=== PATIENT | female | born 1965 | race Two or more races ===

== ENCOUNTER 2016-11-29 09:50 | Day surgery (SDC) | payer OTHER ==
[~2016-11-29] VITALS: Ht 172.7 cm; Wt 79.4 kg
[~2016-11-29 09:50] MED LIST: CETI5TAB28 PO; CHOL200047 PO; EPIN0.3P2 IJ; HYDR25TA4 PO; MELO7.5O PO; MONT10TA20 PO; MULT-1018 PO; OMEP20TA86 PO
[2016-11-29] MEDS ORDERED: fentaNYL-PF 50 mCg/mL 2 mL Inj ONE (09:51)
[2016-11-29] MEDS ORDERED: Propofol 10,000 mCg/mL 20 mL Inj ONE (09:51)
[2016-11-29 10:05] VITALS: BP 135/85; PULSE 77; RESP 16; O2SAT 97
[2016-11-29] MEDS: Lactated Ringer's 1,000 ML IV ONE ×2 (10:27→10:40)
[2016-11-29 10:50] VITALS: BP 122/69; PULSE 68; RESP 16; O2SAT 95
--- NOTE | 2016-11-29 10:58 | PCM.ANEP2 ---
Post Anesthesia Evaluation ASA/CMS Post Anesthesia VS in Patient's Normal Range?: Yes Resp Stable; Airway Patent?: Yes CV Function & Hydration Stable: Yes Mental Status Recovered?: Yes Pain control Satisfactory?: Yes N/V Control Satisfactory?: Yes Bubba Henriquez MD Nov 29, 2016 10:58
--- NOTE | 2016-11-29 10:58 | PCM.HPANE ---
Patient Data Surgeon Admitting Provider: Attending Provider:Vic Ta MD Primary Care Physician:Michelle Oates MD Other Provider:Josse Arana Anesthesia Reason for Visit Screeening, Dysphagia Ht/WT & BMI Body Mass Index Allergies Coded Allergies: cobalt (Verified Allergy, Intermediate, hives, 08/02/15) latex (Verified Adverse Reaction, Intermediate, hives, 08/02/15) Past Anesthesia History Anesthesia History: Denies:: Abnormal Airway, Anesthesia Reactions, Difficult Intubation, Fam Anesthesia Reaction, Fam Malignant Hypertherm, Malignant Hyperthermia Diabetes History Hx Diabetes?: No MRSA MRSA: No Medications Reported Medications Meloxicam 7.5 Mg/5 Ml Oral.susp15 Mg PO DAILY 30 Days 11/28/16 Multivitamin (Multi Vitamin Daily)1 Each Tablet1 Each PO DAILY 30 Days Ref 0 12/23/15 Cetirizine 5 Mg [id number] Mg PO HS PRN allergy sx Ref 0 12/22/15 Epinephrine (Epipen 2-Koffi)0.3 Mg/0.3 Ml Auto.injct0.3 Mg IJ PRN For Anaphyllaxis 12/22/15 Hydrochlorothiazide 25 Mg Lkgujz68 Mg PO DAILY 30 Days Ref 0 12/22/15 Omeprazole 20 Mg Tablet.dr20 Mg PO DAILY 12/22/15 Cholecalciferol (Vitamin D3) (Vitamin D3)2,000 Unit Capsule2,000 Unit PO DAILY 12/22/15 Montelukast (Singulair)10 Mg Pahtga82 Mg PO HS Ref 0 12/22/15 History History of ENT Problems?: Yes HEENT History: Positive for:: Dysphagia Sinus Problem (chronic nasal congestion) Denies:: Abnormal Airway Cataracts Difficult Intubation Hearing Problem Hx of Heart Problems?: No Cardiovascular History: Denies:: AICD Abdominal Aortic Aneurism Atrial Fibrillation Cardiac Surgery Chest Pain Congestive Heart Failure Edema Heart Murmur Hypertension Irregular Heartbeat Pacemaker Rheumatic Fever Thrombophlebitis Valvular Heart Disease Hx of Respiratory Problem?: Yes Respiratory History: Positive for:: Use of C-PAP Machine (uses inconsistently ) Denies:: Asthma COPD Cough Emphysema Hemoptysis Oxygen Administration Pneumonia Tuberculosis Hx Neurologic Problems?: No Neurological History: Denies:: CVA Dementia Dizziness Headaches Multiple Sclerosis Parkinson's Disease Seizures Hx of GI Problems?: Yes Gastrointestinal History: Positive for:: Gastroesphageal Reflux (OCC) Heartburn Denies:: Cirrhosis Diverticulitis Hiatal Hernia Rectal Bleeding Hx of Problems?: Yes Genitourinary History: Positive for:: Kidney Stones Denies:: Urinary Tract Infection (hx of not current) Female Hx: Denies:: Currently (POST MENOPAUSAL) Problems with Breasts? Skin History: Denies:: History Skin Disorders? Pressure Ulcers Hx Musculoskeletal Problems?: Yes Musculoskeletal History: Positive for:: Musculoskeletal Trauma (right foot plantar fascititis current admission problem) Denies:: Joint Replacement Hx of Psycho/Social Problems?: No Psycho Social History: Denies:: Anxiety Hx Depression Hx Surgeries?: Yes (FOOT SX, GALLBLADDER, FINGER ) Hx Any Other Health Problems?: Yes Other History: Denies:: Cancer Thyroid Disease History Blood Transfusions: Denies:: Blood Transfusions Hx Diabetes: No Hx Alcohol Use: NoHx Substance Use: No Smoking Status: Never Smoker Have You Smoked inLast 12 mo: No Stop/Bang Risk Assessment Category Category 1A: Patient has history of documented sleep apnea, and HAS NOT received any narcotic, sedative or anesthesia administration during this stay. Category 1B: Patient has history of documented sleep apnea, and HAS received any narcotic , sedative or anesthesia administration during this stay Category 2: Patient has SUSPECTED Obstructive Sleep Apnea, and HAS received any narcotic , sedative or anesthesia administration during this stay. Category 3: Patient has SUSPECTED Obstructive Sleep Apnea and HAS NOT received narcotic, sedative or anesthesia administration during this stay. Category 4: Outpatient in Procedural Areas with known sleep apnea or who screen positive for High Risk via the STOP/BANG questionnaire. Exam Exam General Appearance: Alert, Oriented X3, Cooperative, No Acute Distress HEENT/AIRWAY: MP 2 Lungs: Clear to Auscultation, Normal Air Movement Heart: Exam Unremarkable, Regular Rate/Rhythm, No Murmurs/Rubs/Gallops Plan Impression Patient chart reviewed, patient interviewed and anesthestic plan with risks, benefits, and alternatives discussed, and informed consent obtained. NPO Status: 2330 ASA Physical Status: ASA2 Mod Systemic Disease Anesthetic Plan: GA Bene/Risks/Altern/Consents: Yes HP Complete Prior to Induction: Yes Bubba Henriquez MD Nov 29, 2016 09:03
[2016-11-29 11:00] VITALS: BP 114/76; PULSE 75; RESP 16; O2SAT 92
[2016-11-29 11:09] VITALS: BP 119/76; PULSE 70; RESP 16; O2SAT 94
--- NOTE | 2016-11-30 00:21 | ENDO ---
[address] [address] ENDOSCOPY PROCEDURE PATIENT: REMA GRAYSON : 1965 MR#: [id number] ADMIT: 11/29/2016 JOB ID: [id number] DATE OF PROCEDURE: 11/29/2016 PROCEDURE: Esophagogastroduodenoscopy, biopsy with esophageal dilatation, colonoscopy. PREOPERATIVE DIAGNOSIS(ES): 1. Dysphagia. 2. Colorectal cancer screening. POSTOPERATIVE DIAGNOSIS(ES): 1. Mild bile reflux. 2. Status post CRE TTS serial balloon dilatation performed from 18 to 20 mm mucosal tear. 3. Normal colonoscopy. ANESTHESIA: Monitored anesthesia care. COMPLICATIONS: None. BLOOD LOSS: Minimal. DESCRIPTION OF PROCEDURE: After risks and benefits have been explained to the patient, informed consent was obtained. After anesthesia administered, upper endoscope was then inserted into the mouth, intubating into the esophagus, stomach, second portion of duodenum. Mucosa carefully examined. After the procedure was done, the scope withdrawn and the procedure terminated. Colonoscope was inserted per rectum to cecum. Mucosa carefully examined. Prep of the patient was excellent. After the procedure was done, the scope was withdrawn and procedure terminated. FINDINGS: Upon inspection of the esophagus, the esophagus was normal without masses, ulcers or lesions. Z-line located 40 cm from incisors. Upon entering the stomach, there was mild bile reflux seen. No masses, ulcers or lesions seen on retroflexion. Normal duodenal bulb, first and second portion. antrum, body of stomach, mid and distal esophagus to rule out eosinophilia or esophagitis. Afterwards, a CRE TTS balloon dilatation was performed in serial fashion up to 20 mm with mucosal tear. Upon inspection of the anus, no masses, lesions, hemorrhoids, or ulcers were seen. Throughout the entire examination no polyps, masses or lesions. Retroflexion was normal. IMPRESSION: 1. Normal colonoscopy. 2. Mild bile reflux. 3. Successful TTS serial balloon dilatation distal esophagus mucosal tear. RECOMMENDATIONS: Await pathology results. Repeat colonoscopy in 10 years for colorectal cancer screening.
--- NOTE | 2016-11-30 11:04 | PATH ---
SURGICAL PATHOLOGY Attending Physician:Vic Ta MD CASE STATUS: Signed Out PATIENT NAME: REMA GRAYSON PID: [id number] : 1965 DATE COLLECTED:11/29/2016 17:24 SPECIMEN: 1: Stomach, Antrum, Biopsy 2: Gastric, Biopsy 3: Esophagus, Biopsy 4: Esophagus, Biopsy CLINICAL HISTORY: 1). ANTRUM BIOPSY 2). GASTRIC BODY BIOPSY 3). DISTAL ESOPHAGUS BIOPSY 4). MID ESOPHAGEAL BIOPSY FINAL DIAGNOSIS: 1. Antrum Biopsy: Mild chronic gastritis involving antral mucosa. Negative for evidence of Helicobacter. Negative for intestinal metaplasia. Negative for dysplasia and malignancy. 2. Gastric Body Biopsy: Mild chronic gastritis involving fundic mucosa. Negative for evidence of Helicobacter. Negative for intestinal metaplasia. Negative for dysplasia and malignancy. 3. Distal Esophagus Biopsy: Fragments of squamous mucosa and gastric cardia-type mucosa negative for specialized metaplasia of Liu's-type esophagus. Negative for dysplasia and malignancy. Eosinophils are not increased. 4. Mid-Esophageal Biopsy: Fragments of squamous epithelium, negative for significant atypia. Eosinophils are not increased. ICD10 K29.70 GROSS DESCRIPTION: The specimen is received in four formalin filled containers labeled with the patient's name. 1). The specimen is sublabeled "antrum" and consists of a 0.5 x 0.3 x 0.2 CM portion of tissue which is entirely submitted in cassette 1A. 2). The specimen is sublabeled gastric body" and consists of 2 portions of tissue which aggregate to 0.3 x 0.3 x 0.2 CM. The specimen is entirely submitted in cassette 2A. 3). The specimen is sublabeled "distal esophagus" and consists of 2 portions of tissue which aggregate to 0.3 x 0.3 x 0.2 CM. The specimen is entirely submitted in cassette 3A. 4). The specimen is sublabeled "mid esophagus" and consists of 2 portions of tissue which aggregate to 0.1 x 0.1 x 0.1 CM. The specimen is entirely submitted in cassette 4A. 11/29/2016 [facility] ICD-9 CODES: CPT CODES: 1: 87514 2: 60901 3: 19681 4: 10996 Electronically Signed Out Moises Law MD [facility] [address], [place] [address] Technical component performed at [facility], [address], [place], [address]
== END 2016-11-29 23:59 | disposition home or self-care (01) ==
LOC: END 09:50
PROVIDERS: ATTEND Internal Medicine Gastroenterology
DX: Z12.11 Encounter for screening for malignant neoplasm of colon (principal); K29.50 Unspecified chronic gastritis without bleeding; K21.9 Gastro-esophageal reflux disease without esophagitis; K44.9 Diaphragmatic hernia without obstruction or gangrene; R13.10 Dysphagia, unspecified; I10 Essential (primary) hypertension; G47.33 Obstructive sleep apnea (adult) (pediatric); R73.03 Prediabetes; Z87.442 Personal history of urinary calculi

== ENCOUNTER 2017-03-24 18:00 | Emergency (ER) | payer OTHER ==
[~2017-03-24] VITALS: Ht 174 cm; Wt 79.5 kg
[2017-03-24 18:02] VITALS: BP 147/90; PULSE 86; RESP 16; O2SAT 98
--- NOTE | 2017-03-24 19:03 | ED.REPORT ---
HPI-Extremity Problem Upper Date of Service Mar 24, 2017 ED Provider: Dr. Merritt Pt is a generally healthy 51 y/o female presenting to the ED c/o left finger discoloration s/p recent surgery. The patient had a recent surgery for non- infectious tenosynovitis of her left hand 4 days ago at [facility] and today began to notice discoloration of her left fingers. Her appointment with the surgeon is on 04/02. She c/o associated left forearm and hand pain. She denies numbness/tingling/weakness of the left hand or fingers, fever, chills. Nursing Notes Stated Complaint: HAND TURNING BLACK Chief Complaint: Extremity Trauma Nursing Notes Reviewed: Yes Allergies: Coded Allergies: cobalt (Verified Allergy, Intermediate, hives, 03/24/17) latex (Verified Adverse Reaction, Intermediate, hives, 03/24/17) Scheduled Cholecalciferol (Vitamin D3) (Vitamin D3) 2,000 Unit Capsule 2,000 UNIT PO DAILY Hydrochlorothiazide (Hydrochlorothiazide) 25 Mg Tablet 25 MG PO DAILY Meloxicam (Meloxicam) 7.5 Mg/5 Ml Oral.susp 15 MG PO DAILY Montelukast (Singulair) 10 Mg Tablet 10 MG PO HS Multivitamin (Multi Vitamin Daily) 1 Each Tablet 1 EACH PO DAILY Omeprazole (Omeprazole) 20 Mg Tablet.dr 20 MG PO DAILY Scheduled PRN Cetirizine (Cetirizine) 5 Mg Tablet 10 MG PO HS PRN PRN allergy sx Epinephrine (Epipen 2-Koffi) 0.3 Mg/0.3 Ml Auto.injct 0.3 MG IJ PRN For Anaphyllaxis General Time Seen by MD: 19:02 Chief Complaint Other (finger discoloration) Hx Obtained From: Patient Arrived By: Walk-in Onset Occurred: 5 - 8 hours ago Symptom Duration: Since onset Location: : Forearm left: Hand left Quality: Painful Severity: Current: Moderate Severity: Maximum: Moderate Recent Healthcare: Previous surgery Similar Sx Previous: No Past Medical History Past Medical History GERD Hx kidney stones Hx of UTI Hx of right foot plantar fasciitis Past Surgical History Foot Cholecystectomy Left hand Smoking History Never Smoker Social History Alcohol Use: Denies alcohol use Drug Use: Denies drug use Ambulatory Status Independent Review of Systems Review of Systems Note: +discoloration Constitutional: Denies: Chills, Fever Musculoskeletal: Reports: Extremity pain, Extremity swelling Neurologic: Denies: Numbness, Weakness Complete sys rev & neg: except as marked. Physical Exam Initial Vital Signs Vital Signs (First) Date Time Temp Pulse Resp B/P Pulse Ox O2 Delivery O2 Flow Rate FiO2 03/24/17 18:02 36.9 86 16 147/90 98 Room Air Initial VS: Reviewed, Vital signs normal Head / Eyes: Atraumatic, Normocephalic, PERRL ENT: Mucous membranes moist, Conjunctiva normal, No scleral icterus Neck: Supple, Full range of motion Respiratory: Breath sounds normal, Clear to auscultation, No respiratory distress Cardiovascular: Regular rate & rhythm, Heart sounds normal, Intact distal pulses Abdomen / GI: Soft Lower Extremities: Vascular intact, Neuro intact Skin: Warm, Dry, No cyanosis Neurologic: Alert, Oriented, Nonfocal Psychiatric: Mood/affect normal, Behavior normal, Normal thought content General/Constitutional: Awake, Alert, No acute distress, Well appearing, Cooperative, Not toxic appearing Wrist / Hand: Full range of motion, No erythema, No deformity, Neurologic intact, Vascular intact 3 cm laceration with sutures in place over left dorsal wrist Interpretation & Diagnostics Interpretation & Diagnostics: LUE US: No DVT Interpreted by US tech, radiologist read pending. Re-Eval/Medical Decision Med Decision/Clinical Course 51-year-old female who is 4 days status post left wrist surgery for chronic tenosynovitis presenting with left hand swelling. She denies any pain, fevers, nausea vomiting. Her left hand and forearm is very mildly swollen. There is no evidence of infection. He is neurovascularly intact. The incision site is clean and dry with no evidence of infection. It is well healing. Left upper extremity ultrasound no evidence of DVT. Suspect this is normal postop changes. She was re-wrapped and advised to follow-up with primary doctor. Return precautions given if any sign symptoms of infection including fevers, nausea vomiting, redness, swelling, discharge, weakness numbness tingling, any other new or worsening symptoms. Source of Hx: Old records Re-Evaluation/Progress : Time of Eval: 21:58 Re-Evaluation/Progress Note: Pt rechecked. Discussed US results. Informed pt of plan for discharge. Pt understands and agrees with plan for discharge. F/U instructions and RTER warnings given. All questions addressed. Counseled Regarding: Diagnosis, Need for follow-up, When/why to return to ED Discharge & Departure Impression: Primary Impression: Postoperative ecchymosis Additional Impression: Postoperative edema Disposition: Home Discharge Condition All VS Reviewed: Yes Condition: Stable Additional Instructions: There is no sign of blood clot in your arm. These symptoms you are experiencing are typical in the postoperative setting. Your exam is reassuring. Return to the emergency department if you experience uncontrolled pain, significant numbness of your fingers, fevers, or for other concerning symptoms. Follow-up with your surgeon as scheduled. Referrals: Carlo Brooks DO (PCP) Scribe Attestation Portions of this note were transcribed by Nasim Quesada. I, Dr. Merritt personally performed the history, physical exam and medical decision-making; I reviewed and confirmed the accuracy of the information in the transcribed note. copies to: Carlo Brooks Ben M MD Mar 24, 2017 19:03 NASIM QUESADA Mar 24, 2017 19:26
[2017-03-24 21:36] VITALS: BP 127/77; PULSE 63; RESP 18; O2SAT 94
[2017-03-24 22:16] VITALS: BP 127/77; PULSE 63; RESP 18; O2SAT 94
--- NOTE | 2017-03-25 09:21 | DRSVH ---
PROCEDURE: US VENOUS ARM DUPLEX UNILATERAL, LEFT INDICATIONS: LUE swelling s/p surgery r/o DVT TECHNIQUE: Real-time imaging, as well as color and pulse Doppler interrogation, was performed of the left upper extremity deep veins from the inferior neck to the antecubital fossa. COMPARISON: None. FINDINGS: The internal jugular vein, visualized portions of the subclavian vein, axillary, and brach ial veins are free of intraluminal thrombus. Where physically possible, the veins are normally compr essible. Color and pulse Doppler demonstrate normal intraluminal flow, with expected phasicity and p ulsatility. Additional scanning of the cephalic and basilic veins of the superficial system demonstr ate normal compressibility, without thrombus. IMPRESSION: No left upper extremity venous thrombus identified. Dictated by: Douglas SHERIFF Interpreted: Deborah Castillo MD on 03/25/2017 at 8:42 Approved by: Deborah Castillo M.D. on 03/25/2017 at 9:19
== END 2017-03-24 22:10 | disposition home or self-care (01) ==
LOC: SED 18:00
DX: M96.840 Postprocedural hematoma of a musculoskeletal structure following a musculoskeletal system procedure (principal); M96.89 Other intraoperative and postprocedural complications and disorders of the musculoskeletal system; K21.9 Gastro-esophageal reflux disease without esophagitis; Z91.040 Latex allergy status; Z98.890 Other specified postprocedural states